=== PATIENT | male | born 1960 | race Caucasian/White ===

== ENCOUNTER → 2023-06-10 12:32 | Outpatient (REF) | payer OTHER, SELFPAY | LOC: RAD 12:32 | PROVIDERS: ATTENDING PHYSICIAN Physician Assistant Medical | DX: M79.604 Pain in right leg (principal); M79.89 Other specified soft tissue disorders; Z86.718 Personal history of other venous thrombosis and embolism | CPT/HCPCS: 93971 ==

== ENCOUNTER → 2023-07-25 09:50 | Outpatient (REF) | payer OTHER, SELFPAY | LOC: RAD 09:50 | PROVIDERS: ATTENDING PHYSICIAN Nurse Practitioner Family; FAMILY PHYSICIAN Family Medicine | DX: M54.50 Low back pain, unspecified (principal) | CPT/HCPCS: 72110 ==

== ENCOUNTER → 2023-08-18 10:03 | Outpatient (REF) | payer OTHER, SELFPAY | LOC: MRI 3T 10:03 | PROVIDERS: ATTENDING PHYSICIAN Nurse Practitioner Family; FAMILY PHYSICIAN Family Medicine | DX: M54.16 Radiculopathy, lumbar region (principal); M51.36 Other intervertebral disc degeneration, lumbar region; R29.898 Other symptoms and signs involving the musculoskeletal system | CPT/HCPCS: 72148 ==

== ENCOUNTER → 2023-09-08 18:04 | Outpatient (REF) | payer OTHER, SELFPAY | LOC: RAD 18:04 | PROVIDERS: ATTENDING PHYSICIAN Family Medicine | DX: M25.551 Pain in right hip (principal) | CPT/HCPCS: 73502 ==

== ENCOUNTER → 2023-09-18 09:41 | Outpatient (REF) | payer OTHER, SELFPAY ==
[2023-09-18 10:46] LABS: % Basophils 1.5 % (0-2); % Eosinophils 2.1 % (0-6); % Immature Granulocytes 0.3 % (0-0.5); % Lymphocytes 24.7 % (20.5-51.1); % Monocytes 9.3 % (1.7-9.3); % Neutrophils 62.1 % (42.2-75.2); Absolute Basophils 0.1 10^3/uL (0-0.2); Absolute Eosinophils 0.1 10^3/uL (0-0.7); Absolute Lymphocytes 1.7 10^3/uL (1.2-3.4); Absolute Monocytes 0.6 10^3/uL (0.1-0.6); Absolute Neutrophils 4.2 10^3/uL (1.4-6.5); Hematocrit 47.2 % (39.0-52.0); Hemoglobin 16.1 g/dL (13.0-18.0); Mean Corp Hgb Conc. 34.1 g/dL (33.0-37.0); Mean Corpuscular Hgb 32.3 pg (27.0-31.0); Mean Corpuscular Volume 94.6 fL (80.0-94.0); Mean Platelet Volume 8.8 fL (7.4-10.4); Nucleated Red Blood Cells % 0 % (-); Platelet Count 244 10^3/uL (130-400); Red Blood Cell Count 4.99 10^6/uL (4.70-6.10); Red Cell Dist. Width 13.1 % (11.5-14.5); White Blood Cell Count 6.8 10^3/uL (4.8-10.8)
[2023-09-18 12:09] LABS: Blood Urea Nitrogen 20 mg/dl (9-20); Carbon Dioxide 29 mmol/L (22-30); Chloride 101 mmol/L (98-107); Glucose 124 mg/dl (70-99); Potassium 4.7 mmol/L (3.5-5.1); Sodium 139 mmol/L (135-145); eGFR > 60.00
== END ==
LOC: REG 09:41
PROVIDERS: ATTENDING PHYSICIAN Orthopaedic Surgery; FAMILY PHYSICIAN Family Medicine
DX: Z01.818 Encounter for other preprocedural examination (principal)
CPT/HCPCS: 36415; 80048; 85025; 93005

== ENCOUNTER 2023-10-08 06:06 | Day surgery (SDC) | payer OTHER, SELFPAY ==
--- NOTE | 2023-10-03 15:29 | PTCARENOTE ---
Abnormal EKG reviewed by Dr. Parks, no further action requested.
--- NOTE | 2023-10-03 15:48 | VNURNOTE ---
Received notification of SDS scheduled R JOSE MANUEL for 10/07. Confirmed with Cele at [facility]o patient will be same day DC, joint protocol. Call placed to patient to explain [facility] services, no answer- left message requesting call back. Also attempted to
call spouse, no answer, left message. Lila at [facility] Intake and [facility] PT harbor department manager Fidel notified of pending SDS. Referral placed in [facility].
--- NOTE | 2023-10-06 10:47 | VNURNOTE ---
Reached out to patient, spoke on phone, explained [facility] services and same day joint protocol. Instructed to bring rolling walker with him day of surgery. Patient confirms he has a dog and cat at home. [facility] pet policy reviewed, infection
prevention/hand hygiene reviewed. Mr. Nichols also confirms he has hip kit, antiemoblism pumps and bedside commode at home. Patient has outpt PT scheduled for Fri. 10/09. Several questions answered about what to expect, approx location of
incision, pillows to use, chair cushion for car. Referral accepted in [facility].
[2023-10-08] VITALS (17 sets, daily range): BP systolic 93–136; BP diastolic 66–84; BMI 38.3
[2023-10-08] MEDS: TYLENOL 650 MG PO (07:16)
[2023-10-08] MEDS: CELEBREX 200 MG PO (07:16)
[2023-10-08] MEDS: NORMOSOL-R 1000 IV (07:16)
[2023-10-08 10:53] LABS: Glycohemoglobin (HgbA1c) 5.7 % (4.0-5.6)
[2023-10-08] MEDS: ANCEF 5 IV (12:08)
== END 2023-10-08 17:58 | disposition home or self-care (01) ==
LOC: SDS 06:06
PROVIDERS: ATTENDING PHYSICIAN Orthopaedic Surgery; FAMILY PHYSICIAN Family Medicine
DX: M16.11 Unilateral primary osteoarthritis, right hip (principal)
CPT/HCPCS: 27130; 73502; 83036; 97163; 97530; C1776

== ENCOUNTER 2024-07-23 13:22 | Inpatient (IN) | payer BC, SELFPAY ==
[2024-07-22 22:23] VITALS: BP 116/78
[2024-07-22 22:54] LABS: % Basophils 0.6 % (0-2); % Eosinophils 0.1 % (0-6); % Immature Granulocytes 0.4 % (0-0.5); % Lymphocytes 5.1 % (20.5-51.1); % Monocytes 3.4 % (1.7-9.3); % Neutrophils 90.4 % (42.2-75.2); Absolute Basophils 0.1 10^3/uL (0-0.2); Absolute Lymphocytes 0.5 10^3/uL (1.2-3.4); Absolute Monocytes 0.4 10^3/uL (0.1-0.6); Absolute Neutrophils 9.3 10^3/uL (1.4-6.5); Hematocrit 48.8 % (39.0-52.0); Mean Corp Hgb Conc. 34.8 g/dL (33.0-37.0); Mean Corpuscular Volume 94.8 fL (80.0-94.0); Mean Platelet Volume 8.8 fL (7.4-10.4); Nucleated Red Blood Cells % 0 % (-); Platelet Count 255 10^3/uL (130-400); Red Blood Cell Count 5.15 10^6/uL (4.70-6.10); Red Cell Dist. Width 12.8 % (11.5-14.5); White Blood Cell Count 10.3 10^3/uL (4.8-10.8)
[2024-07-22 23:03] LABS: Lactic Acid 3.3 mmol/L (0.7-2.0)
[2024-07-22 23:07] LABS: COVID-19 Antigen Negative (Negative)
[2024-07-22 23:11] LABS: ALT (SGPT) 28 U/L (0-50); AST (SGOT) 27 U/L (17-59); Albumin 4.5 g/dl (3.5-5.0); Alkaline Phosphatase 45 U/L (38-126); Blood Urea Nitrogen 18 mg/dl (9-20); Calcium 9.9 mg/dl (8.4-10.2); Carbon Dioxide 28 mmol/L (22-30); Chloride 104 mmol/L (98-107); Glucose 164 mg/dl (70-99); Potassium 3.8 mmol/L (3.5-5.1); Sodium 142 mmol/L (135-145); Total Bilirubin 0.8 mg/dl (0.2-1.3); Total Protein 7.1 g/dl (6.3-8.2); eGFR 56.83
[2024-07-23] VITALS (17 sets, daily range): BP systolic 87–132; BP diastolic 51–84; BMI 37.3; BMI 37.2
[2024-07-23] MEDS: NSS 1000 IV ×3 (03:15→23:53)
[2024-07-23] MEDS: TYLENOL 650 MG PO ×2 (03:28→19:38)
--- NOTE | 2024-07-23 05:01 | ED.GENMED ---
History of Present Illness
<Chevy Grant Jr., PA-C - Last Filed: 07/24/24 15:44>
General
Chief Complaint: Weakness
Source: patient
Exam Limitations: none
Time Seen by Provider: 07/23/24 02:35
Nursing documentation reviewed up to this point in time: agreed with
History of Present Illness
History of Present Illness:
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 Denies any specific symptoms but has felt off balance
fever upon arrival. Denies any specific upper respiratory symptoms abdominal pain changes in urination or bowel movements, headache neck pain.
Past History
<Chevy Grant Jr., PA-C - Last Filed: 07/24/24 15:44>
Past History
ED Past Medical History: HTN and Other (Kidney stones)
ED Past Surgical History: Appendectomy and Urological (Lithotripsy)
Social History
Tobacco: Non-smoker
Alcohol: None
Personal:
Living: with family
Employment: Employed
Family History
Family History: Hypertension
Review of Systems
<Chevy Grant Jr., PA-C - Last Filed: 07/24/24 15:44>
Review of Systems
Allergies reviewed?: Yes
All Other Systems: ROS reviewed and negative except as documented in HPI and ROS
Phy Exam
<ARLEEN Miranda Jr. Last Filed: 07/24/24 15:44>
Physical Exam
Physical Exam:
GENERAL: Alert , in no apparent distress
EYE: pupils equal and reactive
NECK: Supple, no significant adenopathy.
ENT: o/p clr, mmm.
CARDIAC: Regular rate and rhythm .
LUNGS: Clear breath sounds bilaterally, no acute respiratory distress, no wheezes/rales/rhonchi
ABDOMEN: Soft, without focal tenderness, no r/g, no cvat
NEUROLOGICAL: Alert and oriented, no focal neuro deficits
SKIN: Warm and dry, skin intact.
MUSCULOSKELETAL: No edema, well perfused.
PSYCH: Normal and appropriate interaction.
Sepsis
<Chevy Grant Jr., PA-C - Last Filed: 07/24/24 15:44>
Sepsis Screen
Sepsis Screen: Sepsis Ruled Out
Date: 07/24/24
Time: 15:43
<Memo Vega PA-C - Last Filed: 07/23/24 08:12>
Sepsis Screening
Sepsis Assessment: Sepsis Ruled Out
Sepsis Screen
Sepsis Screen: Sepsis Ruled Out
Date: 07/23/24
Time: 08:12
<Romie Hernandez MD - Last Filed: 07/23/24 10:15>
Sepsis Screen
Sepsis Screen: Sepsis Ruled Out
Date: 07/23/24
Time: 10:14
Course
<Chevy Grant Jr., PA-C - Last Filed: 07/24/24 15:44>
Orders/Labs/Results
Orders:
Orders
07/22/24 22:44
COVID-19 Antigen Urgent
Source: Nasal Swab
Complete Blood Count/With Diff Urgent
Comprehensive Metabolic Panel Urgent
Lactic Acid Urgent
Influenza A+B Rapid Molecular Urgent
SARAH Source: Nasal Swab
Specimen Description:
07/23/24 03:23
Acetaminophen [Tylenol] 650 mg .ROUTE .STK-MED ONE
07/23/24 03:27
Acetaminophen [Tylenol] 650 mg PO NOW STA
07/23/24 03:46
Chest [CR Chest - 2 Views ] Urgent
Comment:
Reason For Exam: fever hypotension
07/23/24 04:25
0.9% Sodium Chloride 1000 ml [Nss] 1,000 ml IV BOLUS
07/23/24 04:36
Lactic Acid Urgent
07/23/24 Breakfast
Regular
At Your Request: Full Participation
07/23/24 06:28
CT Head W/o Iv Contrast Urgent
Comment:
Reason For Exam: falls on xarelto
Piperacillin/Tazo 4.5 Gram [Zosyn] 4.5 gram in 100 ml IV NOW
07/23/24 07:45
Urinalysis Reflex To Culture Urgent
Date Specimen was Collected: 07/23/24
Time Specimen was Collected: 07:32
Urine Microscopic Reflex Cult Urgent
07/23/24 08:32
Blood Culture Q30M
SARAH Source: Blood/Venous
Specimen Description:
Blood Culture Q30M
SARAH Source: Blood/Venous
Specimen Description:
07/23/24 08:56
INFECTIOUS DISEASE CONSULT Routine
Consulting Provider: Luis A Pabon
Was physician already notified: Yes
Reason for consult: sepsis
07/23/24 12:30
Norovirus by PCR Urgent
SARAH Source: Feces/Stool
Specimen Description:
Date Specimen was Collected: 07/23/24
Time Specimen was Collected: 18:58
STOOL [C difficile Antigen & Toxins] Urgent
SARAH Source: Feces/Stool
Specimen Description:
Date Specimen was Collected: 07/23/24
Time Specimen was Collected: 18:58
07/23/24 12:43
Admit/Transfer Patient As Directed
Co-Sign Provider:
Level of Care: Inpatient admission
Assign to:: Telemetry
Physician / Group: [facility]
Diagnosis: SIRS
Reason for Telemetry: Arrhythmia
Date to Stop Telemetry: 07/26/24
Time to Stop Telemetry: 11:00
Reason for Hospitalization: IVFs, IV abx
Expected length of stay greater than two midnights?: Yes
ELOS- Estimated Length of Stay in days: 3
I certify the patient meets the requirements for IP care: Yes
PRN Pain Medication Management As Directed
May give lesser potent ordered pain med per pt: Yes
preference::
Protocol:: Medication orders for pain may be administered in a
manner that supports deferring to patient preference
when the pt is:
- Requesting an ordered lesser potent pain medication.
Least to most potent pain medications are defined
as: acetaminophen < NSAID < tramadol < opioids
(morphine, oxycodone, hydromorphone).
- Requesting a lesser dose of the same medication IF
ORDERED.
- Requesting a less intrusive route of administration
if both routes are prescribed by the provider (PO <
IV).
07/23/24 12:44
Code Status As Directed
Resuscitation Status: Full Code
07/23/24 14:17
0.9% Sodium Chloride 1000 ml [Nss] 1,000 ml IV 125 mls/hr
0.9% Sodium Chloride [Nss (Preservative Free)] See Protocol IV PRN PRN
Acetaminophen [Tylenol] 650 mg PO Q4HPRN PRN
FOLic ACID [Folvite] 1 mg 0.9% Sodium Chloride 50 ml [Nss] 50 ml IV DAILYPRN
Lorazepam [Ativan] 1 mg IV Q1HPRN PRN
Lorazepam [Ativan] 1 mg PO Q2HPRN PRN
Lorazepam [Ativan] 2 mg IV Q1HPRN PRN
Rivaroxaban [Xarelto] 20 mg PO DAILY
07/23/24 14:17
Activity As Directed
Activity Level: Out of Bed-Early Mobility
With Assistance
I&O [Intake/ Output] As Directed
Frequency: q12h
MSAS SCORE As Directed
MSAS Score 0-4: Repeat MSAS every 2 hours until 0-4 for three consecutive assessments, then every 4 hours x 48
hours.
MSAS Score 5-7: For MILD withdrawl symptoms. Repeat MSAS and RASS every 2 hours
MSAS Score 8-11: For MODERATE withdrawal symptoms. Repeat MSAS and RASS every 1 hour. Consider ICU or IMU
level of care.
MSAS Score > 11: For SEVERE withdrawal symptoms. Repeat MSAS and RASS every 1 hour. Notify provider, consider
ICU level of care.
MSAS Additional Instructions: If no improvement or no decrease in score from severe to moderate within 12
hours, consult psychiatry
MSAS Notify Provider: Notify provider if patient requires more than 10 mg of Lorazepam in eight hour period.
Vital Signs As Directed
Frequency: Per unit guidelines
Weight As Directed
Frequency: Daily
Ot Eval And Treat Routine
Pt Eval And Treat Routine
Activity Level: Out of Bed-Early Mobility
07/23/24 15:00
Allopurinol [Zyloprim] 300 mg PO DAILY
07/23/24 15:04
BMP [Basic Metabolic Panel] Urgent
CBC/No Diff [Complete Blood Count/No Diff] Urgent
07/23/24 15:35
MRSA Screen Routine
SARAH Source: Nose
Specimen Description:
07/23/24 18:00
Cefepime HCl [Maxipime] 1,000 mg IV Q6H
07/23/24 19:02
Stool Culture Routine
SARAH Source: Feces/Stool
Specimen Description:
Date Specimen was Collected: 07/23/24
Time Specimen was Collected: 18:58
07/23/24 20:00
Thiamine Injection 200 mg IV Q12
07/24/24 06:57
PTT IN AM
Prothrombin Time IN AM
07/24/24 06:58
Basic Metabolic Panel IN AM
Complete Blood Count/No Diff IN AM
Magnesium IN AM
Phosphorus IN AM
07/24/24 08:00
FOLic ACID [Folvite] 1 mg PO DAILY
07/26/24 11:00
DC Protocol for Telemetry ONCE
07/26/24 20:00
Thiamine HCl [Vitamin B1] 100 mg PO BID
Abnormal Lab Results
07/22/24 07/23/24
22:44 07:45
MCV 94.8 H fL
(80.0-94.0)
MCH 33.0 H pg
(27.0-31.0)
Absolute Neuts (auto) 9.3 H 10^3/uL
(1.4-6.5)
Absolute Lymphs (auto) 0.5 L 10^3/uL
(1.2-3.4)
Neutrophils % 90.4 H %
(42.2-75.2)
Lymphocytes % 5.1 L %
(20.5-51.1)
Creatinine 1.4 H mg/dL
(0.7-1.3)
Glucose 164 H mg/dl
(70-99)
Lactic Acid 3.3 H mmol/L
(0.7-2.0)
Urine Bacteria (Reflex) Few A
(Negative)
Urine Albumin (Reflex) 2+ A
(Neg - Trace)
07/22/24 22:44
07/22/24 22:44
Vital Signs
Initial and Last Documented VS:
Initial Vital Signs
Temp Pulse Resp BP Pulse Ox
102.2 F H 103 20 116/78 97
07/22/24 22:23 07/22/24 22:23 07/22/24 22:23 07/22/24 22:23 07/22/24 22:23
Last Documented Vital Signs
Temp Pulse Resp BP Pulse Ox
98.5 F 92 18 115/67 99
07/24/24 15:00 07/24/24 15:00 07/24/24 15:00 07/24/24 15:00 07/24/24 15:00
<Memo Vega PA-C - Last Filed: 07/23/24 08:12>
Orders/Labs/Results
Orders:
Orders
07/22/24 22:44
COVID-19 Antigen Urgent
Source: Nasal Swab
Complete Blood Count/With Diff Urgent
Comprehensive Metabolic Panel Urgent
Lactic Acid Urgent
Influenza A+B Rapid Molecular Urgent
SARAH Source: Nasal Swab
Specimen Description:
07/23/24 03:23
Acetaminophen [Tylenol] 650 mg .ROUTE .STK-MED ONE
07/23/24 03:27
Acetaminophen [Tylenol] 650 mg PO NOW STA
07/23/24 03:46
Chest [CR Chest - 2 Views ] Urgent
Comment:
Reason For Exam: fever hypotension
07/23/24 04:25
0.9% Sodium Chloride 1000 ml [Nss] 1,000 ml IV BOLUS
07/23/24 04:36
Lactic Acid Urgent
07/23/24 Breakfast
Regular
At Your Request: Full Participation
07/23/24 06:28
CT Head W/o Iv Contrast Urgent
Comment:
Reason For Exam: falls on xarelto
Piperacillin/Tazo 4.5 Gram [Zosyn] 4.5 gram in 100 ml IV NOW
07/23/24 07:45
Urinalysis Reflex To Culture Urgent
Date Specimen was Collected: 07/23/24
Time Specimen was Collected: 07:32
Urine Microscopic Reflex Cult Urgent
07/23/24 08:32
Blood Culture Q30M
SARAH Source: Blood/Venous
Specimen Description:
Blood Culture Q30M
SARAH Source: Blood/Venous
Specimen Description:
07/23/24 08:56
INFECTIOUS DISEASE CONSULT Routine
Consulting Provider: Luis A Pabon
Was physician already notified: Yes
Reason for consult: sepsis
07/23/24 12:30
Norovirus by PCR Urgent
SARAH Source: Feces/Stool
Specimen Description:
Date Specimen was Collected: 07/23/24
Time Specimen was Collected: 18:58
STOOL [C difficile Antigen & Toxins] Urgent
SARAH Source: Feces/Stool
Specimen Description:
Date Specimen was Collected: 07/23/24
Time Specimen was Collected: 18:58
07/23/24 12:43
Admit/Transfer Patient As Directed
Co-Sign Provider:
Level of Care: Inpatient admission
Assign to:: Telemetry
Physician / Group: [facility]
Diagnosis: SIRS
Reason for Telemetry: Arrhythmia
Date to Stop Telemetry: 07/26/24
Time to Stop Telemetry: 11:00
Reason for Hospitalization: IVFs, IV abx
Expected length of stay greater than two midnights?: Yes
ELOS- Estimated Length of Stay in days: 3
I certify the patient meets the requirements for IP care: Yes
PRN Pain Medication Management As Directed
May give lesser potent ordered pain med per pt: Yes
preference::
Protocol:: Medication orders for pain may be administered in a
manner that supports deferring to patient preference
when the pt is:
- Requesting an ordered lesser potent pain medication.
Least to most potent pain medications are defined
as: acetaminophen < NSAID < tramadol < opioids
(morphine, oxycodone, hydromorphone).
- Requesting a lesser dose of the same medication IF
ORDERED.
- Requesting a less intrusive route of administration
if both routes are prescribed by the provider (PO <
IV).
05/30/25 12:44
Code Status As Directed
Resuscitation Status: Full Code
07/23/24 14:17
0.9% Sodium Chloride 1000 ml [Nss] 1,000 ml IV 125 mls/hr
0.9% Sodium Chloride [Nss (Preservative Free)] See Protocol IV PRN PRN
Acetaminophen [Tylenol] 650 mg PO Q4HPRN PRN
FOLic ACID [Folvite] 1 mg 0.9% Sodium Chloride 50 ml [Nss] 50 ml IV DAILYPRN
Lorazepam [Ativan] 1 mg IV Q1HPRN PRN
Lorazepam [Ativan] 1 mg PO Q2HPRN PRN
Lorazepam [Ativan] 2 mg IV Q1HPRN PRN
Rivaroxaban [Xarelto] 20 mg PO DAILY
07/23/24 14:17
Activity As Directed
Activity Level: Out of Bed-Early Mobility
With Assistance
I&O [Intake/ Output] As Directed
Frequency: q12h
MSAS SCORE As Directed
MSAS Score 0-4: Repeat MSAS every 2 hours until 0-4 for three consecutive assessments, then every 4 hours x 48
hours.
MSAS Score 5-7: For MILD withdrawl symptoms. Repeat MSAS and RASS every 2 hours
MSAS Score 8-11: For MODERATE withdrawal symptoms. Repeat MSAS and RASS every 1 hour. Consider ICU or IMU
level of care.
MSAS Score > 11: For SEVERE withdrawal symptoms. Repeat MSAS and RASS every 1 hour. Notify provider, consider
ICU level of care.
MSAS Additional Instructions: If no improvement or no decrease in score from severe to moderate within 12
hours, consult psychiatry
MSAS Notify Provider: Notify provider if patient requires more than 10 mg of Lorazepam in eight hour period.
Vital Signs As Directed
Frequency: Per unit guidelines
Weight As Directed
Frequency: Daily
Ot Eval And Treat Routine
Pt Eval And Treat Routine
Activity Level: Out of Bed-Early Mobility
07/23/24 15:00
Allopurinol [Zyloprim] 300 mg PO DAILY
07/23/24 15:04
BMP [Basic Metabolic Panel] Urgent
CBC/No Diff [Complete Blood Count/No Diff] Urgent
07/23/24 15:35
MRSA Screen Routine
SARAH Source: Nose
Specimen Description:
07/23/24 18:00
Cefepime HCl [Maxipime] 1,000 mg IV Q6H
07/23/24 19:02
Stool Culture Routine
SARAH Source: Feces/Stool
Specimen Description:
Date Specimen was Collected: 07/23/24
Time Specimen was Collected: 18:58
07/23/24 20:00
Thiamine Injection 200 mg IV Q12
07/24/24 06:57
PTT IN AM
Prothrombin Time IN AM
07/24/24 06:58
Basic Metabolic Panel IN AM
Complete Blood Count/No Diff IN AM
Magnesium IN AM
Phosphorus IN AM
07/24/24 08:00
FOLic ACID [Folvite] 1 mg PO DAILY
07/26/24 11:00
DC Protocol for Telemetry ONCE
07/26/24 20:00
Thiamine HCl [Vitamin B1] 100 mg PO BID
Abnormal Lab Results
07/22/24 07/23/24
22:44 07:45
MCV 94.8 H fL
(80.0-94.0)
MCH 33.0 H pg
(27.0-31.0)
Absolute Neuts (auto) 9.3 H 10^3/uL
(1.4-6.5)
Absolute Lymphs (auto) 0.5 L 10^3/uL
(1.2-3.4)
Neutrophils % 90.4 H %
(42.2-75.2)
Lymphocytes % 5.1 L %
(20.5-51.1)
Creatinine 1.4 H mg/dL
(0.7-1.3)
Glucose 164 H mg/dl
(70-99)
Lactic Acid 3.3 H mmol/L
(0.7-2.0)
Urine Bacteria (Reflex) Few A
(Negative)
Urine Albumin (Reflex) 2+ A
(Neg - Trace)
07/22/24 22:44
07/22/24 22:44
Vital Signs
Initial and Last Documented VS:
Initial Vital Signs
Temp Pulse Resp BP Pulse Ox
102.2 F H 103 20 116/78 97
07/22/24 22:23 07/22/24 22:23 07/22/24 22:23 07/22/24 22:23 07/22/24 22:23
Last Documented Vital Signs
Temp Pulse Resp BP Pulse Ox
98.5 F 92 18 115/67 99
07/24/24 15:00 07/24/24 15:00 07/24/24 15:00 07/24/24 15:00 07/24/24 15:00
<Romie Hernandez MD - Last Filed: 07/23/24 10:15>
Orders/Labs/Results
Orders:
Orders
07/22/24 22:44
COVID-19 Antigen Urgent
Source: Nasal Swab
Complete Blood Count/With Diff Urgent
Comprehensive Metabolic Panel Urgent
Lactic Acid Urgent
Influenza A+B Rapid Molecular Urgent
SARAH Source: Nasal Swab
Specimen Description:
07/23/24 03:23
Acetaminophen [Tylenol] 650 mg .ROUTE .STK-MED ONE
07/23/24 03:27
Acetaminophen [Tylenol] 650 mg PO NOW STA
07/23/24 03:46
Chest [CR Chest - 2 Views ] Urgent
Comment:
Reason For Exam: fever hypotension
07/23/24 04:25
0.9% Sodium Chloride 1000 ml [Nss] 1,000 ml IV BOLUS
07/23/24 04:36
Lactic Acid Urgent
07/23/24 Breakfast
Regular
At Your Request: Full Participation
07/23/24 06:28
CT Head W/o Iv Contrast Urgent
Comment:
Reason For Exam: falls on xarelto
Piperacillin/Tazo 4.5 Gram [Zosyn] 4.5 gram in 100 ml IV NOW
07/23/24 07:45
Urinalysis Reflex To Culture Urgent
Date Specimen was Collected: 07/23/24
Time Specimen was Collected: 07:32
Urine Microscopic Reflex Cult Urgent
07/23/24 08:32
Blood Culture Q30M
SARAH Source: Blood/Venous
Specimen Description:
Blood Culture Q30M
SARAH Source: Blood/Venous
Specimen Description:
07/23/24 08:56
INFECTIOUS DISEASE CONSULT Routine
Consulting Provider: Luis A Pabon
Was physician already notified: Yes
Reason for consult: sepsis
07/23/24 12:30
Norovirus by PCR Urgent
SARAH Source: Feces/Stool
Specimen Description:
Date Specimen was Collected: 07/23/24
Time Specimen was Collected: 18:58
STOOL [C difficile Antigen & Toxins] Urgent
SARAH Source: Feces/Stool
Specimen Description:
Date Specimen was Collected: 07/23/24
Time Specimen was Collected: 18:58
07/23/24 12:43
Admit/Transfer Patient As Directed
Co-Sign Provider:
Level of Care: Inpatient admission
Assign to:: Telemetry
Physician / Group: [facility]
Diagnosis: SIRS
Reason for Telemetry: Arrhythmia
Date to Stop Telemetry: 07/26/24
Time to Stop Telemetry: 11:00
Reason for Hospitalization: IVFs, IV abx
Expected length of stay greater than two midnights?: Yes
ELOS- Estimated Length of Stay in days: 3
I certify the patient meets the requirements for IP care: Yes
PRN Pain Medication Management As Directed
May give lesser potent ordered pain med per pt: Yes
preference::
Protocol:: Medication orders for pain may be administered in a
manner that supports deferring to patient preference
when the pt is:
- Requesting an ordered lesser potent pain medication.
Least to most potent pain medications are defined
as: acetaminophen < NSAID < tramadol < opioids
(morphine, oxycodone, hydromorphone).
- Requesting a lesser dose of the same medication IF
ORDERED.
- Requesting a less intrusive route of administration
if both routes are prescribed by the provider (PO <
IV).
07/23/24 12:44
Code Status As Directed
Resuscitation Status: Full Code
07/23/24 14:17
0.9% Sodium Chloride 1000 ml [Nss] 1,000 ml IV 125 mls/hr
0.9% Sodium Chloride [Nss (Preservative Free)] See Protocol IV PRN PRN
Acetaminophen [Tylenol] 650 mg PO Q4HPRN PRN
FOLic ACID [Folvite] 1 mg 0.9% Sodium Chloride 50 ml [Nss] 50 ml IV DAILYPRN
Lorazepam [Ativan] 1 mg IV Q1HPRN PRN
Lorazepam [Ativan] 1 mg PO Q2HPRN PRN
Lorazepam [Ativan] 2 mg IV Q1HPRN PRN
Rivaroxaban [Xarelto] 20 mg PO DAILY
07/23/24 14:17
Activity As Directed
Activity Level: Out of Bed-Early Mobility
With Assistance
I&O [Intake/ Output] As Directed
Frequency: q12h
MSAS SCORE As Directed
MSAS Score 0-4: Repeat MSAS every 2 hours until 0-4 for three consecutive assessments, then every 4 hours x 48
hours.
MSAS Score 5-7: For MILD withdrawl symptoms. Repeat MSAS and RASS every 2 hours
MSAS Score 8-11: For MODERATE withdrawal symptoms. Repeat MSAS and RASS every 1 hour. Consider ICU or IMU
level of care.
MSAS Score > 11: For SEVERE withdrawal symptoms. Repeat MSAS and RASS every 1 hour. Notify provider, consider
ICU level of care.
MSAS Additional Instructions: If no improvement or no decrease in score from severe to moderate within 12
hours, consult psychiatry
MSAS Notify Provider: Notify provider if patient requires more than 10 mg of Lorazepam in eight hour period.
Vital Signs As Directed
Frequency: Per unit guidelines
Weight As Directed
Frequency: Daily
Ot Eval And Treat Routine
Pt Eval And Treat Routine
Activity Level: Out of Bed-Early Mobility
07/23/24 15:00
Allopurinol [Zyloprim] 300 mg PO DAILY
07/23/24 15:04
BMP [Basic Metabolic Panel] Urgent
CBC/No Diff [Complete Blood Count/No Diff] Urgent
07/23/24 15:35
MRSA Screen Routine
SARAH Source: Nose
Specimen Description:
07/23/24 18:00
Cefepime HCl [Maxipime] 1,000 mg IV Q6H
07/23/24 19:02
Stool Culture Routine
SARAH Source: Feces/Stool
Specimen Description:
Date Specimen was Collected: 07/23/24
Time Specimen was Collected: 18:58
07/23/24 20:00
Thiamine Injection 200 mg IV Q12
07/24/24 06:57
PTT IN AM
Prothrombin Time IN AM
07/24/24 06:58
Basic Metabolic Panel IN AM
Complete Blood Count/No Diff IN AM
Magnesium IN AM
Phosphorus IN AM
07/24/24 08:00
FOLic ACID [Folvite] 1 mg PO DAILY
07/26/24 11:00
DC Protocol for Telemetry ONCE
07/26/24 20:00
Thiamine HCl [Vitamin B1] 100 mg PO BID
Abnormal Lab Results
07/22/24 07/23/24
22:44 07:45
MCV 94.8 H fL
(80.0-94.0)
MCH 33.0 H pg
(27.0-31.0)
Absolute Neuts (auto) 9.3 H 10^3/uL
(1.4-6.5)
Absolute Lymphs (auto) 0.5 L 10^3/uL
(1.2-3.4)
Neutrophils % 90.4 H %
(42.2-75.2)
Lymphocytes % 5.1 L %
(20.5-51.1)
Creatinine 1.4 H mg/dL
(0.7-1.3)
Glucose 164 H mg/dl
(70-99)
Lactic Acid 3.3 H mmol/L
(0.7-2.0)
Urine Bacteria (Reflex) Few A
(Negative)
Urine Albumin (Reflex) 2+ A
(Neg - Trace)
07/22/24 22:44
07/22/24 22:44
Vital Signs
Initial and Last Documented VS:
Initial Vital Signs
Temp Pulse Resp BP Pulse Ox
102.2 F H 103 20 116/78 97
07/22/24 22:23 07/22/24 22:23 07/22/24 22:23 07/22/24 22:23 07/22/24 22:23
Last Documented Vital Signs
Temp Pulse Resp BP Pulse Ox
98.5 F 92 18 115/67 99
07/24/24 15:00 07/24/24 15:00 07/24/24 15:00 07/24/24 15:00 07/24/24 15:00
<Chevy Grant Jr., PA-C - Last Filed: 07/24/24 15:44>
MDM/Problems Addressed
MDM/Problems Addressed:
63-year-old male presenting to the emergency department today with concerns of feeling off balance weak multiple falls today he is on Xarelto denies any his head. Denies specific symptoms at this point otherwise. Had an elevated lactic acid of 3.3
was mildly tachycardic on arrival and febrile to 102.2. No white count.
<Memo Vega PA-C - Last Filed: 07/23/24 08:12>
*Critical Care Note
Total Time (30-74mins, 75-104mins- exclusive of procedures): Not Applicable
<Memo Vega PA-C - Last Filed: 07/23/24 08:12>
Update Note
Update Note:
Received signout of patient pending urinalysis. Patient here for weakness and falls in the setting of fever. Workup so far negative urinalysis without infection. His blood pressure was soft initially received 2 L of fluid which has improved.
Concern for possible sepsis no clear source at this time. Will admit. Zosyn given
ED Attending Note
<Chevy Grant Jr., PA-C - Last Filed: 07/24/24 15:44>
-
Portions of this chart may have been created with voice recognition software.� Occasional wrong word or��sound alike� substitutions may have occurred due to the inherent limitations of voice recognition software.
<Romie Hernandez MD - Last Filed: 07/23/24 10:15>
ED Attending Note
Patient seen and examined by attending physician: Yes
I performed the substantive portion of visit, reviewed & personally made and approve the management plan that is documented in note by myself or YOHANA.: Yes
ED Attending Note:
Patient presents with weakness bilaterally since late p.m. yesterday. Troubles ambulating. No other focal infections. Anticoagulated for DVT. History of hypertension. No acute infectious issues described denying cough abdominal pain urinary
symptoms.
On exam patient is nontoxic in no distress. Warm and dry. Perfusing well. No respiratory distress. Abdomen nontender. He is nonfocal. Speech is normal. Neck is supple. No rash.
Patient states he did ambulate to the bathroom and is improved somewhat. Very nontoxic. Clinically not meningitic. Fever weakness of unknown source. Admission for further care
Discharge Plan
Departure
Patient Disposition: Admit
Date of Disposition: 07/23/24
Time of Disposition: 08:11
Presentation/result/management discussed w/ accepting MD/DO: Hospitalist
Discharge Problem:
Weakness, Fever
Interventions
Interventions:
*Risk Screen - Suicide Last Done: 07/22/24 22:23
*General Assessment Last Done: 07/22/24 22:23
*Neglect/Abuse Screening Last Done: 07/22/24 22:23
*ED- Fall Risk Assessment Last Done: 07/23/24 02:22
*ED COVID-19 Vaccine History Last Done: 07/23/24 02:21
*Nursing Disposition Last Done: 07/23/24 14:38
ED- Cardiac Assessment Last Done: 07/23/24 02:35
ED-Musculoskeletal Assessment Last Done: 07/23/24 02:35
ED- Neurological Assessment Last Done: 07/23/24 02:35
ED- Pulmonary Assessment Last Done: 07/23/24 02:35
ED-Skin Assessment Last Done: 07/23/24 02:35
Discharge Date and Time
Discharge Date/Time: 07/23/24 14:15
[2024-07-23 05:02] LABS: Lactic Acid 1.3 mmol/L (0.7-2.0)
[2024-07-23 08:01] LABS: Urine Albumin 2+ (Neg - Trace); Urine Bilirubin Negative (Negative); Urine Character Clear (Clear); Urine Color Yellow; Urine Glucose Negative (Negative); Urine Ketone Negative (Negative); Urine Leukocyte Negative (Negative); Urine Nitrite Negative (Negative); Urine Occult Blood Negative (Negative); Urine Urobilinogen Negative (Neg - 1+)
[2024-07-23 08:26] LABS: Urine Mucus Moderate
[2024-07-23 08:28] LABS: Urine Squamous Cell 0-2 /LPF (Few)
[2024-07-23 08:29] LABS: Urine Bacteria Few (Negative); Urine Red Blood Cell 0-2 /HPF (0-2)
[2024-07-23] MEDS: ZOSYN 100 IV (08:37)
--- NOTE | 2024-07-23 10:50 | CON.ID ---
Consultation
-
Date/Time Consultation Requested: July 23, 2024 0856
Date/Time Consultation Performed: July 23, 2024 1051
Requesting Provider: Dr. Paul Petersen
Performing Provider: Dr. Rajani Laboy
Reason for Consultation: Fever
Chief Complaint / Past History
Chief Complaint
Weakness
History of Present Illness
64-year-old male with history of hypertension, diverticulitis, right total hip replacement who was brought to the hospital July 22 due to falling twice in the bathroom. Patient reports yesterday around 4 he developed sudden onset of chills. He then
felt unwell. Some nausea. No vomiting. Was having frequent loose bowel movements. He felt weak. Last night he went to the bathroom. However his legs were very weak and he had trouble getting up from the toilet. When he got up he fell. He his
called EMS. In the ED temperature 102.2. Blood pressure was low 87 systolic responded to IV fluids. White count normal. Chest x-ray negative. Urinalysis negative. COVID and influenza negative. Blood cultures pending. He is currently on
Zosyn. Patient denies hip pain. No back pain. No headache. No URI. No cough. No abdominal pain. He now has diarrhea after the Zosyn. No urine symptoms. No ill contacts. No recent travel. No tick exposure. He does not spend much time
outdoors. No recent dental work. At hamburger from restaurant 2 days ago. He feels better today. He was able to ambulate to the bathroom without problems.
Past History
Additional Past Medical History:
HTN
Diverticulitis
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
Hx DVT/PE
BMI=37
Additional Past Surgical History:
R JOSE MANUEL
Appendectomy
Lithotripsy
Allergy History:
shellfish derived Allergy (Verified 07/22/24 22:30)
Nausea / Vomiting
Medications Reviewed: Yes
Current Antibiotics:
Zosyn
Social History
Tobacco: Non-Smoker
Alcohol: Occasional
Drug: None
Personal:
Living: With Family (1 cat and dog)
Employment: Employed (Real estate (desk job))
Family History
Family History: Not Pertinent
Review of Systems
Review of Systems
General: Chills and Change in Appetite
HEENT: Negative Stiff Neck, Sinus Problems, Headache or Pharyngitis
Cardiovascular: Negative Chest Pain or Dyspnea
Respiratory: Negative Dyspnea or Cough
Gasteroenterology: Nausea and Diarrhea; Negative Weight Loss or Vomiting
Genital / Urological: Negative Dysuria or Flank Pain
Endocrine: Weakness
Neurological: Negative Dizziness
All systems: All other systems were reviewed and were negative
Vital Signs
Temp Pulse Resp BP Pulse Ox
101.8 F H 71 13 115/84 97
07/23/24 02:20 07/23/24 06:00 07/23/24 06:00 07/23/24 06:00 07/23/24 06:23
Selected Entries
07/22/24
22:23 07/23/24
02:20
Temp 102.2 F H 101.8 F H
Physical Exam
Physical Exam
Constitutional: No Acute Distress, Comfortable and Obese
Head: Other (No frontal or max or sinus tenderness)
Eyes: No Conjunctival Hemorrhage and Sclera Anicteric
Pharynx: Benign
Cardiovascular: Regular Rate and S1/S2
Pulmonary: Clear
Gastrointestinal: Soft, Non Tender, Non Distended and Normal Bowel Sounds
Genito-Urinary: Negative Suprapubic Tenderness or CVA Tenderness
Extremities: Negative Edema or Erythema
Musculoskeletal: Other (right hip without erythema/induration); Negative Spinal Tenderness
Skin: Negative Rash
Wound: None
Neurological: AO x 3
Lab / Diagnostic Study Results
07/22/24 22:44
07/22/24 22:44
Abs Immat Gran (auto) 0.0 10^3/uL (0-0.05) 07/22/24 22:44
Absolute Neuts (auto) 9.3 10^3/uL (1.4-6.5) H 07/22/24 22:44
Absolute Lymphs (auto) 0.5 10^3/uL (1.2-3.4) L 07/22/24 22:44
Absolute Monos (auto) 0.4 10^3/uL (0.1-0.6) 07/22/24 22:44
Absolute Basos (auto) 0.1 10^3/uL (0-0.2) 07/22/24 22:44
Immature Gran % 0.4 % (0-0.5) 07/22/24 22:44
Neutrophils % 90.4 % (42.2-75.2) H 07/22/24 22:44
Lymphocytes % 5.1 % (20.5-51.1) L 07/22/24 22:44
Monocytes % 3.4 % (1.7-9.3) 07/22/24 22:44
Eosinophils % 0.1 % (0-6) 07/22/24 22:44
Basophils % 0.6 % (0-2) 07/22/24 22:44
Lactic Acid 1.3 mmol/L (0.7-2.0) 07/23/24 04:36
Ur Squamous Epith Cells 0-2 /LPF (Few) 07/23/24 07:45
Microbiology Results
Micro:
07/23/24 08:32 Blood Culture - Pending
Blood/Venous
07/23/24 08:32 Blood Culture - Pending
Blood/Venous
07/22/24 22:44 Influenza Types A & B (SHARITA) - Final
Nasal Swab Negative for Influenza A & B, NAAT
Negative results must be combined with clinical observations
and patient history.
Nucleic Acid Amplification test (NAAT)performed on the
[employer] platform.
07/23/[address]: No CT evidence for acute intracranial hemorrhage or transcortical infarct.7 mm chronic periventricular white matter infarct in the posterior left frontal lobe centrum semiovale.Moderate bilateral frontal lobe volume loss.
07/23/34 CXR: No radiographic evidence of acute cardiopulmonary abnormality.
Assessment / Plan
# Febrile illness
# weakness
# Frequent loose stools
# LEONIE
- COVID/influenza neg
- UA neg. CXR neg
- Await blood cultures.
-Check stool culture and C. diff
- Narrow Zosyn to cefepime.
- Trend fever curve
# Conditions PHARMACY SALESPERSON
HTN
Diverticulitis
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
Hx DVT/PE
BMI=37
--- NOTE | 2024-07-23 12:16 | HPS.HSE ---
Family Physician
-
Family Physician: David Egan
Chief Complaint
-
Weakness and Fever
History of Present Illness
Patient is a 63 y/o male past medical history of hypertension and DVT/PE on anticoagulation who presents with weakness and fever. Patient reports he was feeling well yesterday morning. He took several walks earlier in the day but in the evening
time he noticed he was off balance which resulted in a two falls. Upon arrival to the emergency department he was found to have a fever of 102.2F which was associated with chills. He reports multiple soft/loose stools yesterday which he now
reports is more liquid/diarrhea like today. He denies nausea, vomiting or abdominal pain. He denies cough or shortness of breath. He denies chest pain or palpitations. He denies headache, blurry vision, neck pain or stiffness. He denies dysuria
or urinary frequency. He denies any rashes.
Medical History
Past Medical History
Past Medical History: Reports Other
Additional Past Medical History:
DVT/PE
Essential Hypertension
Diverticulitis
Past Surgical History: Reports Other
Additional Past Surgical History:
Right Total Hip Replacement
Appendectomy
Lithotripsy
Social History
Tobacco: Non-smoker
Alcohol: Daily (2 glasses of whiskey nightly)
Family History
Family History: Not pertinent
Allergies / Home Medications
Allergies reflects when Allergies were last updated in [employer].
Home Medications with original date entered in [employer]
Allergy/Medication List:
Allergies
Allergy/AdvReac Type Severity Reaction Status Date / Time
shellfish derived Allergy Nausea / Verified 07/22/24 22:30
Vomiting
Home Medications
allopurinol 300 mg tablet 300 mg PO DAILY kidney stone 11/09/20
propranolol 80 mg capsule,24 hr,extended release 80 mg PO DAILY Blood pressure 11/09/20
rivaroxaban 20 mg tablet (Xarelto) 20 mg PO DAILY 10/02/23
lisinopril 20 mg-hydrochlorothiazide 12.5 mg tablet 1 tab PO DAILY 07/23/24
psyllium 1 packet PO DAILY 07/23/24
Review of Systems
-
History Source: Patient
A 12 point ROS was completed and negative except as noted: Yes
Constitutional: Denies Fever or Chills
Respiratory: Denies Cough or Trouble Breathing
Cardiac: Denies Chest Pain or Palpitations
Abdomen/GI: Reports Diarrhea; Denies Abdominal Pain, Nausea, Vomiting or Constipated
Physical Exam
Vital Signs
Vital Signs
Temp Pulse Resp BP Pulse Ox
101.8 F H 71 13 115/84 97
07/23/24 02:20 07/23/24 06:00 07/23/24 06:00 07/23/24 06:00 07/23/24 06:23
Physical Exam
General: Comfortable and Conversant
HEENT: Anicteric and Moist mucous membranes
Respiratory: Non Labored Respirations and Decreased Breath Sounds
Cardiac: S1/S2 and Regular Rhythm; No Tachycardia or Murmur
GI: Soft, Non Tender and Other (Protuberant)
Rectal: Deferred by Provider
Musculoskeletal: No Clubbing, No Cyanosis and No Edema
Skin: Warm and Dry
Neuro: Awake, Alert and No Motor Deficits
Psych: Calm
Laboratory Results
-
07/22/24 22:44
07/22/24 22:44
Laboratory Results
Lactic Acid 1.3 mmol/L (0.7-2.0) 07/23/24 04:36
Total Bilirubin 0.8 mg/dl (0.2-1.3) 07/22/24 22:44
AST 27 U/L (17-59) 07/22/24 22:44
ALT 28 U/L (0-50) 07/22/24 22:44
Alkaline Phosphatase 45 U/L (38-126) 07/22/24 22:44
Data Reviewed
-
Lab Data: Labs Reviewed by me
Impression/Plan
-
Systemic Inflammatory Response Syndrome suspect Sepsis but source of infection remains unclear
-Patient is now reporting diarrhea which is a potential source
-Consult Infectious Disease
-Continue Zosyn - Add Vancomycin pending MRSA screen
-Check stool studies
-Await blood cultures
Acute Renal Insufficiency
-Hold lisinopril
-Continue IVFs
-Recheck labs in AM
Essential Hypertension
-BP initially running low but improved with IVFs
-Hold anti-hypertensives for now
-Monitor blood pressure
Alcohol Use Disorder
-Continue alcohol withdrawal protocol
Hx DVT/PE
-Continue Xarelto
Code Status: Full Code
--- NOTE | 2024-07-23 13:08 | W.PN.UPDATE ---
Update Note
Progress Note Update
I saw and examined the patient.
The PROJECT SYSTEMS ENGINEER or PA's note was reviewed and I agree with the note.
Comment: 63 y/o M who p/w CCs weakness and fever.
120/71, 77, 11, 101.8 �F, 95% RA
Gen: NAD, AAOx3.
Eyes: EOMI, PERRLA, no scleral icterus.
Neck: supple.
CV: RRR, +S1/S2, no m/r/g.
Resp: CTAB, no rales, wheezes, or rhonchi.
Abd: +BS, soft, NT, ND
Skin: No rashes. 2-3+ B/L LE edema
Neuro: CN 2-12 intact, non-focal.
Psych: Normal mood and affect.
CT brain:
1. No CT evidence for acute intracranial hemorrhage or transcortical infarct.
2. 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
3. Moderate bilateral frontal lobe volume loss.
CXR: No radiographic evidence of acute cardiopulmonary abnormality.
SIRS:
-currently no definitive source of infection
-no meningeal signs (on my exam as well as the exam of Dr. Hernandez as per our conversation in [employer] today)
-cont empiric Zosyn, add Vanco until MRSA screen results
-s/p IVFs, cont maintenance IVFs
-with diarrhea check stool studies
--- NOTE | 2024-07-23 14:49 | CM ---
Met with patient at bedside; initial assessment completed
Pharmacy verified: [facility] @ [id number], [place]
Patient lives w/ ; multilevel home 4-5 steps to enter; 12-13 steps between floors; railings on stairs; powder room 1st floor; 2nd floor bath has tub w/ shower
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
DME: none
No SNF or Home Health utilization history
Will transport home via [facility] service
Plan: anticipate patient will discharge to home; CM will monitor for discharge needs and support coordination of services as needed
[2024-07-23] MEDS: XARELTO 20 MG PO (15:21)
[2024-07-23] MEDS: ZYLOPRIM 300 MG PO (15:21)
[2024-07-23 15:29] LABS: Hematocrit 43.5 % (39.0-52.0); Hemoglobin 14.9 g/dL (13.0-18.0); Mean Corp Hgb Conc. 34.3 g/dL (33.0-37.0); Mean Corpuscular Hgb 32.7 pg (27.0-31.0); Mean Corpuscular Volume 95.4 fL (80.0-94.0); Mean Platelet Volume 8.9 fL (7.4-10.4); Platelet Count 170 10^3/uL (130-400); Red Blood Cell Count 4.56 10^6/uL (4.70-6.10); Red Cell Dist. Width 13.1 % (11.5-14.5); White Blood Cell Count 7.1 10^3/uL (4.8-10.8)
[2024-07-23 15:31] LABS: Blood Urea Nitrogen 17 mg/dl (9-20); Calcium 8.8 mg/dl (8.4-10.2); Carbon Dioxide 26 mmol/L (22-30); Chloride 106 mmol/L (98-107); Estimated Creatinine Clearance 75 ml/min; Glucose 101 mg/dl (70-99); Sodium 138 mmol/L (135-145); eGFR > 60.00
[2024-07-23] MEDS: MAXIPIME 1000 MG IV ×2 (17:18→23:47)
[2024-07-23] MEDS: STERILE WATER FOR INJECTION 10 ML IV ×2 (17:19→23:47)
[2024-07-23] MEDS: THIAMINE INJECTION 200 MG IV (19:38)
[2024-07-24] VITALS (8 sets, daily range): BP systolic 96–135; BP diastolic 57–88; PULSE 87; O2SAT 94; BMI 37.5
[2024-07-24] MEDS: MAXIPIME 1000 MG IV ×4 (05:12→23:23)
[2024-07-24] MEDS: STERILE WATER FOR INJECTION 10 ML IV ×4 (05:12→23:23)
[2024-07-24] MEDS: TYLENOL 650 MG PO (05:28)
[2024-07-24] MEDS: THIAMINE INJECTION 200 MG IV ×2 (07:41→20:11)
[2024-07-24] MEDS: FOLVITE 1 MG PO (07:41)
[2024-07-24] MEDS: XARELTO 20 MG PO (07:41)
[2024-07-24] MEDS: ZYLOPRIM 300 MG PO (07:41)
[2024-07-24 08:15] LABS: Hematocrit 38.1 % (39.0-52.0); Hemoglobin 13.4 g/dL (13.0-18.0); Mean Corp Hgb Conc. 35.2 g/dL (33.0-37.0); Mean Corpuscular Hgb 33.1 pg (27.0-31.0); Mean Corpuscular Volume 94.1 fL (80.0-94.0); Mean Platelet Volume 9.2 fL (7.4-10.4); Platelet Count 151 10^3/uL (130-400); Red Blood Cell Count 4.05 10^6/uL (4.70-6.10); White Blood Cell Count 6.4 10^3/uL (4.8-10.8)
[2024-07-24 08:20] LABS: INR 1.61; PT 19.4 Sec (11.4-14.6)
[2024-07-24 08:21] LABS: APTT 33.3 Sec (23.4-35.0)
--- NOTE | 2024-07-24 08:50 | W.PN.HOSP.TC ---
Today's Communication/Plan
-
see plan
Assessment / Plan
Assessment / Plan
Gen: NAD, AAOx3.
Eyes: EOMI, PERRLA, no scleral icterus.
Neck: supple.
CV: RRR, +S1/S2, no m/r/g.
Resp: CTAB, no rales, wheezes, or rhonchi.
Abd: +BS, soft, NT, ND
Skin: No rashes. 2-3+ B/L LE edema
Neuro: CN 2-12 intact, non-focal.
Psych: Normal mood and affect.
07/23/24 12:30 Feces/Stool C. difficile GDH Antigen & Toxins - Final
Negative for toxigenic C.difficile
07/23/24 08:32 Blood/Venous Blood Culture - Preliminary
No Growth in 24 hours- Final report to follow
07/23/24 08:32 Blood/Venous Blood Culture - Preliminary
No Growth in 24 hours- Final report to follow
07/22/24 22:44 Nasal Swab Influenza Types A & B (SHARITA) - Final
Negative for Influenza A & B, NAAT
Negative results must be combined with clinical observations
and patient history.
Nucleic Acid Amplification test (NAAT)performed on the
[employer] NOW platform.
CT brain:
1. No CT evidence for acute intracranial hemorrhage or transcortical infarct.
2. 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
3. Moderate bilateral frontal lobe volume loss.
CXR: No radiographic evidence of acute cardiopulmonary abnormality.
SIRS:
-currently no definitive source of infection
-COVID/Flu NEG
-no meningeal signs (on my exam on admission as well as the exam of Dr. Hernandez as per our conversation in [facility] 07/23/24)
-cont empiric Cefepime as per ID
-s/p IVF bolus on admission, cont maintenance IVFs (increase to 125cc/hr with hypotension)
-with diarrhea follow stool studies (so far C diff NEG)
-BCxs NGTD
LEONIE:
-holding ACEi
-cont IVFs
Hypokalemia;
-40meq PO and 40meq IV
-place on tele
Other problems:
Essential HTN: cont to hold home antihypertensives
Alcohol Use Disorder: cont MSAS protocol (thiamine/folate/PRN ativan)
h/o DVT/PE: cont Xarelto
FULL/Xarelto
Anticipated Discharge: > 48 hours
Subjective/Interval History
-
Date of Service: July 24, 2024
Objective Data
-
Labs:
Laboratory Results
07/24/24 07/24/24
06:57 06:58
WBC 6.4
Hgb 13.4
Hct 38.1 L
Plt Count 151
PT 19.4 H
INR 1.61
APTT 33.3
Sodium Pending
Potassium Pending
Chloride Pending
Carbon Dioxide Pending
BUN Pending
Creatinine Pending
Glucose Pending
Calcium Pending
Vital Signs:
Vital Signs
Temp Pulse Resp BP Pulse Ox
98.7 F 89 18 106/60 94
07/24/24 07:00 07/24/24 07:00 07/24/24 07:00 07/24/24 07:00 07/24/24 07:00
I&O
07/23/24 07/24/24 07/25/24
06:59 06:59 06:59
Intake Total 1000 / 1000 1460 / 1460
Output Total 800 / 800 600 / 600
Balance 200 / 200 860 / 860
[2024-07-24 08:59] LABS: Blood Urea Nitrogen 12 mg/dl (9-20); Carbon Dioxide 24 mmol/L (22-30); Chloride 109 mmol/L (98-107); Estimated Creatinine Clearance 81 ml/min; Glucose 86 mg/dl (70-99); Magnesium 2.1 mg/dl (1.6-2.3); Phosphorus 2.2 mg/dl (2.5-4.5); Potassium 2.8 mmol/L (3.5-5.1); Sodium 138 mmol/L (135-145); eGFR > 60.00
[2024-07-24] MEDS: KCL 40 MEQ PO (10:06)
[2024-07-24] MEDS: KCL 270 MEQ IV (10:07)
[2024-07-24] MEDS: NSS 1000 IV ×2 (12:24→20:10)
--- NOTE | 2024-07-24 13:49 | W.PN.ID1 ---
Date of Service
Date of Service: July 24, 2024
Today's Communication
Continue cefepime.
Assessment / Plan
# Fever persists
# diarrhea - persists
# Pre-renal LEONIE resolved
# Hypokalemia due to diarrhea
- COVID/influenza neg
- UA neg. CXR neg
- Blood cx's neg to date
- C. diff neg. Norovirus neg.
- Stool cx pending.
- Continue empiric cefepime.
- If fever persists, will work-up for tickborne illness.
- Trend fever curve
# Conditions SERVICE DESK TECHNICIAN
HTN
Diverticulitis
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
Hx DVT/PE
BMI=37
Chief Complaint
-: Fever
Subjective / Review of Systems
Continues to have diarrhea.
Not as weak today.
Vital Signs / Physical Exam
Vital Signs
Vital Signs
Temp Pulse Resp BP Pulse Ox
98.0 F 78 18 116/75 100
07/24/24 11:00 07/24/24 11:00 07/24/24 11:00 07/24/24 11:00 07/24/24 11:00
Selected Entries
07/24/24
05:30
Temp 102.5 F H
Physical Exam
Constitutional: No Acute Distress and Comfortable
Eyes: No Conjunctival Hemorrhage and Sclera Anicteric
Cardiovascular: Regular Rate and S1/S2
Pulmonary: Clear
Gastrointestinal: Soft, Non Tender, Non Distended and Normal Bowel Sounds
Genito-Urinary: Negative CVA Tenderness
Neurological: AO x 3
Objective Data
Lab Data
Lab Results
07/24/24 06:58
07/24/24 06:58
PT 19.4 Sec (11.4-14.6) H 07/24/24 06:57
INR 1.61 07/24/24 06:57
APTT 33.3 Sec (23.4-35.0) 07/24/24 06:57
Estimated Creat Clear 81 ml/min 07/24/24 06:58
Lactic Acid 1.3 mmol/L (0.7-2.0) 07/23/24 04:36
Total Bilirubin 0.8 mg/dl (0.2-1.3) 07/22/24 22:44
AST 27 U/L (17-59) 07/22/24 22:44
ALT 28 U/L (0-50) 07/22/24 22:44
Alkaline Phosphatase 45 U/L (38-126) 07/22/24 22:44
Most recent labs reviewed.
Micro Results:
07/23/24 12:30 C. difficile GDH Antigen & Toxins - Final
Feces/Stool Negative for toxigenic C.difficile
- Final
Negative for Norovirus GI and GII.
07/23/24 08:32 Blood Culture - Preliminary
Blood/Venous No Growth in 24 hours- Final report to follow
07/23/24 08:32 Blood Culture - Preliminary
Blood/Venous No Growth in 24 hours- Final report to follow
07/23/24 19:02 Salmonella/Shigella Culture - Pending
Feces/Stool Campylobacter Culture - Pending
Shiga Toxin Test - Pending
Stool Leukocytes - Pending
07/23/24 15:35 MRSA Screen - Pending
Nose
07/22/24 22:44 Influenza Types A & B (SHARITA) - Final
Nasal Swab Negative for Influenza A & B, NAAT
Negative results must be combined with clinical observations
and patient history.
Nucleic Acid Amplification test (NAAT)performed on the
[employer] platform.
07/23/[address]: No CT evidence for acute intracranial hemorrhage or transcortical infarct.7 mm chronic periventricular white matter infarct in the posterior left frontal lobe centrum semiovale.Moderate bilateral frontal lobe volume loss.
07/23/34 CXR: No radiographic evidence of acute cardiopulmonary abnormality.
[2024-07-25 03:16] VITALS: BP 121/72
[2024-07-25] MEDS: NSS 1000 IV ×3 (04:06→23:15)
[2024-07-25] MEDS: MAXIPIME 1000 MG IV ×4 (05:10→23:14)
[2024-07-25] MEDS: STERILE WATER FOR INJECTION 10 ML IV ×4 (05:11→23:14)
[2024-07-25 06:00] VITALS: BMI 37.8
[2024-07-25 07:00] VITALS: BP 124/78
[2024-07-25] MEDS: THIAMINE INJECTION 200 MG IV ×2 (09:06→20:35)
[2024-07-25] MEDS: FOLVITE 1 MG PO (09:06)
[2024-07-25] MEDS: XARELTO 20 MG PO (09:06)
[2024-07-25] MEDS: ZYLOPRIM 300 MG PO (09:06)
--- NOTE | 2024-07-25 09:57 | W.PN.HOSP.TC ---
Today's Communication/Plan
-
see plan
Assessment / Plan
Assessment / Plan
Gen: NAD, AAOx3.
Eyes: EOMI, PERRLA, no scleral icterus.
Neck: supple.
CV: remains RRR, +S1/S2, no m/r/g.
Resp: remains CTAB, no rales, wheezes, or rhonchi.
Abd: remains +BS, soft, NT, ND
Skin: No rashes. 2-3+ B/L LE edema
Neuro: CN 2-12 intact, non-focal.
Psych: Normal mood and affect.
07/23/24 19:02 Feces/Stool Salmonella/Shigella Culture - Preliminary
Culture in Progress
07/23/24 19:02 Feces/Stool Campylobacter Culture - Preliminary
Culture in Progress
07/23/24 19:02 Feces/Stool Stool Leukocytes - Final
07/23/24 08:32 Blood/Venous Blood Culture - Preliminary
No Growth in 48 hours- Final report to follow
07/23/24 08:32 Blood/Venous Blood Culture - Preliminary
No Growth in 48 hours- Final report to follow
07/23/24 15:35 Nose MRSA Screen - Final
No Methicillin Resistant Staphylococcus aureus isolated.
07/23/24 12:30 Feces/Stool C. difficile GDH Antigen & Toxins - Final
Negative for toxigenic C.difficile
07/23/24 12:30 Feces/Stool - Final
Negative for Norovirus GI and GII.
07/22/24 22:44 Nasal Swab Influenza Types A & B (SHARITA) - Final
Negative for Influenza A & B, NAAT
Negative results must be combined with clinical observations
and patient history.
Nucleic Acid Amplification test (NAAT)performed on the
[employer] platform.
CT brain:
1. No CT evidence for acute intracranial hemorrhage or transcortical infarct.
2. 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
3. Moderate bilateral frontal lobe volume loss.
CXR: No radiographic evidence of acute cardiopulmonary abnormality.
SIRS:
-currently no definitive source of infection
-COVID/Flu NEG
-no meningeal signs (on my exam on admission as well as the exam of Dr. Hernandez as per our conversation in [facility] 07/23/24)
-cont empiric Cefepime as per ID
-s/p IVF bolus on admission, cont maintenance IVFs (decrease to 75cc/hr)
-with diarrhea follow stool studies (so far NEG as above)
-BCxs NGTD
LEONIE:
-holding ACEi
-cont IVFs
Hypokalemia;
-AM K Pending
Other problems:
Essential HTN: cont to hold home antihypertensives
Alcohol Use Disorder: cont MSAS protocol (thiamine/folate/PRN ativan)
h/o DVT/PE: cont Xarelto
FULL/Xarelto
Anticipated Discharge: 24 - 48 hours
Subjective/Interval History
-
Date of Service: July 25, 2024
Diarrhea improving
Objective Data
-
Labs:
Laboratory Results
07/25/24
09:56
Sodium Pending
Potassium Pending
Chloride Pending
Carbon Dioxide Pending
BUN Pending
Creatinine Pending
Glucose Pending
Calcium Pending
Vital Signs:
Vital Signs
Temp Pulse Resp BP Pulse Ox
99.2 F 72 18 124/78 97
07/25/24 07:00 07/25/24 07:00 07/25/24 07:00 07/25/24 07:00 07/25/24 07:00
I&O
07/24/24 07/25/24 07/26/24
06:59 06:59 06:59
Intake Total 1460 / 1460 2220 / 2219
Output Total 600 / 600
Balance 860 / 860 2219 / 2219
[2024-07-25 10:32] LABS: % Basophils 0.7 % (0-2); % Eosinophils 1.1 % (0-6); % Immature Granulocytes 0.2 % (0-0.5); % Lymphocytes 16.9 % (20.5-51.1); % Monocytes 10.6 % (1.7-9.3); % Neutrophils 70.5 % (42.2-75.2); Absolute Eosinophils 0.1 10^3/uL (0-0.7); Absolute Lymphocytes 0.8 10^3/uL (1.2-3.4); Absolute Monocytes 0.5 10^3/uL (0.1-0.6); Absolute Neutrophils 3.3 10^3/uL (1.4-6.5); Hematocrit 40.3 % (39.0-52.0); Hemoglobin 13.9 g/dL (13.0-18.0); Mean Corp Hgb Conc. 34.5 g/dL (33.0-37.0); Mean Corpuscular Hgb 33.1 pg (27.0-31.0); Mean Platelet Volume 8.6 fL (7.4-10.4); Nucleated Red Blood Cells % 0 % (-); Platelet Count 152 10^3/uL (130-400); Red Cell Dist. Width 12.9 % (11.5-14.5); White Blood Cell Count 4.6 10^3/uL (4.8-10.8)
[2024-07-25 10:57] LABS: Blood Urea Nitrogen 8 mg/dl (9-20); Calcium 8.2 mg/dl (8.4-10.2); Carbon Dioxide 22 mmol/L (22-30); Chloride 113 mmol/L (98-107); Estimated Creatinine Clearance 100 ml/min; Glucose 87 mg/dl (70-99); Potassium 3.6 mmol/L (3.5-5.1); Sodium 140 mmol/L (135-145); eGFR > 60.00
[2024-07-25 11:00] VITALS: BP 119/73
--- NOTE | 2024-07-25 11:25 | W.PN.ID1 ---
Date of Service
Date of Service: July 25, 2024
Today's Communication
Continue cefepime for now.
Assessment / Plan
# Gastroenteritis improving
# Fever resolving
# Pre-renal LEONIE resolved
# Hypokalemia due to diarrhea
- COVID/influenza neg
- UA neg. CXR neg
- Blood cx's neg to date
- C. diff neg. Norovirus neg.
- Stool cx pending.
- Continue empiric cefepime pending stool cx.
# Conditions PRICING CLERK
HTN
Diverticulitis
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
Hx DVT/PE
BMI=37
Chief Complaint
-: Fever
Subjective / Review of Systems
Feeling better. Diarrhea not as frequent, some formed stools.
Vital Signs / Physical Exam
Vital Signs
Vital Signs
Temp Pulse Resp BP Pulse Ox
99.2 F 72 18 124/78 97
07/25/24 07:00 07/25/24 07:00 07/25/24 07:00 07/25/24 07:00 07/25/24 10:15
Physical Exam
Constitutional: No Acute Distress
Cardiovascular: Regular Rate and S1/S2
Pulmonary: Clear
Gastrointestinal: Soft, Non Tender, Non Distended and Normal Bowel Sounds
Genito-Urinary: Negative CVA Tenderness
Extremities: Negative Edema
Neurological: AO x 3
Objective Data
Lab Data
Lab Results
07/25/24 10:18
07/25/24 10:18
PT 19.4 Sec (11.4-14.6) H 07/24/24 06:57
INR 1.61 07/24/24 06:57
APTT 33.3 Sec (23.4-35.0) 07/24/24 06:57
Estimated Creat Clear 100 ml/min 07/25/24 10:18
Lactic Acid 1.3 mmol/L (0.7-2.0) 07/23/24 04:36
Total Bilirubin 0.8 mg/dl (0.2-1.3) 07/22/24 22:44
AST 27 U/L (17-59) 07/22/24 22:44
ALT 28 U/L (0-50) 07/22/24 22:44
Alkaline Phosphatase 45 U/L (38-126) 07/22/24 22:44
Most recent labs reviewed.
Micro Results:
07/23/24 19:02 Salmonella/Shigella Culture - Preliminary
Feces/Stool Culture in Progress
Campylobacter Culture - Preliminary
Culture in Progress
Shiga Toxin Test - Pending
Stool Leukocytes - Final
07/23/24 08:32 Blood Culture - Preliminary
Blood/Venous No Growth in 48 hours- Final report to follow
07/23/24 08:32 Blood Culture - Preliminary
Blood/Venous No Growth in 48 hours- Final report to follow
07/23/24 15:35 MRSA Screen - Final
Nose No Methicillin Resistant Staphylococcus aureus isolated.
07/23/24 12:30 C. difficile GDH Antigen & Toxins - Final
Feces/Stool Negative for toxigenic C.difficile
- Final
Negative for Norovirus GI and GII.
07/22/24 22:44 Influenza Types A & B (SHARITA) - Final
Nasal Swab Negative for Influenza A & B, NAAT
Negative results must be combined with clinical observations
and patient history.
Nucleic Acid Amplification test (NAAT)performed on the
[employer] platform.
07/23/[address]: No CT evidence for acute intracranial hemorrhage or transcortical infarct.7 mm chronic periventricular white matter infarct in the posterior left frontal lobe centrum semiovale.Moderate bilateral frontal lobe volume loss.
07/23/34 CXR: No radiographic evidence of acute cardiopulmonary abnormality.
[2024-07-25] MEDS: KCL 40 MEQ PO (13:01)
--- NOTE | 2024-07-25 13:01 | CM ---
chart reviewed
norovirus neg, cdiff negative, cont IV antibiotics
PLAN: anticipate patient will discharge to home, CM will monitor for discharge needs and support coordination of services as needed
[2024-07-25 15:00] VITALS: BP 128/76
[2024-07-25 19:00] VITALS: BP 133/81
[2024-07-25] MEDS: TYLENOL 650 MG PO (20:47)
[2024-07-25 23:00] VITALS: BP 127/74
[2024-07-26 03:00] VITALS: BP 127/79
[2024-07-26] MEDS: STERILE WATER FOR INJECTION 10 ML IV ×2 (05:14→11:15)
[2024-07-26] MEDS: MAXIPIME 1000 MG IV ×2 (05:14→11:14)
[2024-07-26 05:18] VITALS: BMI 38.0
[2024-07-26 07:01] LABS: Blood Urea Nitrogen 8 mg/dl (9-20); Calcium 8.1 mg/dl (8.4-10.2); Carbon Dioxide 21 mmol/L (22-30); Chloride 112 mmol/L (98-107); Estimated Creatinine Clearance 101 ml/min; Glucose 67 mg/dl (70-99); Potassium 3.9 mmol/L (3.5-5.1); Sodium 139 mmol/L (135-145); eGFR > 60.00
[2024-07-26 07:15] VITALS: BP 134/76
[2024-07-26] MEDS: XARELTO 20 MG PO (08:34)
[2024-07-26] MEDS: ZYLOPRIM 300 MG PO (08:34)
[2024-07-26] MEDS: FOLVITE 1 MG PO (08:34)
[2024-07-26] MEDS: THIAMINE INJECTION 200 MG IV (08:34)
[2024-07-26 11:03] VITALS: BP 120/73
--- NOTE | 2024-07-26 11:42 | W.PN.HOSP.TC ---
Addendum entered and electronically signed by Carlito Wilson MD 07/26/24 15:06:
SIRS with organ dysfunction likely secondary to viral gastroenteritis
Addendum entered and electronically signed by Carlito Wilson MD 07/26/24 12:45:
Discussed with infectious disease, no need for further antibiotics. Patient is tolerating diet. Discharge today
Time of discharge 37 minutes
Original Note:
Today's Communication/Plan
-
monitor vitals
see plan
cw abx per ID
trial of imodium
Assessment / Plan
Assessment / Plan
Gen: NAD, AAOx3.
Eyes: EOMI, PERRLA, no scleral icterus.
Neck: supple.
CV: remains RRR, +S1/S2, no m/r/g.
Resp: remains CTAB, no rales, wheezes, or rhonchi.
Abd: remains +BS, soft, NT, ND
Skin: No rashes. 2-3+ B/L LE edema
Neuro: CN 2-12 intact, non-focal.
Psych: Normal mood and affect.
07/23/24 19:02 Feces/Stool Salmonella/Shigella Culture - Preliminary
Culture in Progress
07/23/24 19:02 Feces/Stool Campylobacter Culture - Preliminary
Culture in Progress
07/23/24 19:02 Feces/Stool Stool Leukocytes - Final
07/23/24 08:32 Blood/Venous Blood Culture - Preliminary
No Growth in 48 hours- Final report to follow
07/23/24 08:32 Blood/Venous Blood Culture - Preliminary
No Growth in 48 hours- Final report to follow
07/23/24 15:35 Nose MRSA Screen - Final
No Methicillin Resistant Staphylococcus aureus isolated.
07/23/24 12:30 Feces/Stool C. difficile GDH Antigen & Toxins - Final
Negative for toxigenic C.difficile
07/23/24 12:30 Feces/Stool - Final
Negative for Norovirus GI and GII.
07/22/24 22:44 Nasal Swab Influenza Types A & B (SHARITA) - Final
Negative for Influenza A & B, NAAT
Negative results must be combined with clinical observations
and patient history.
Nucleic Acid Amplification test (NAAT)performed on the
[employer] platform.
CT brain:
1. No CT evidence for acute intracranial hemorrhage or transcortical infarct.
2. 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
3. Moderate bilateral frontal lobe volume loss.
CXR: No radiographic evidence of acute cardiopulmonary abnormality.
SIRS:
-currently no definitive source of infection
-COVID/Flu NEG
-no meningeal signs (on my exam on admission as well as the exam of Dr. Hernandez as per our conversation in [facility] 07/23/24)
-cont empiric Cefepime as per ID
-IVF
follow fever curve
-with diarrhea follow stool studies (so far NEG as above). trial of imodium
-BCxs NGTD
LEONIE:
-holding ACEi
-cont IVFs
Hypokalemia;
-AM K Pending
Other problems:
Essential HTN: cont to hold home antihypertensives
Alcohol Use Disorder: cont MSAS protocol (thiamine/folate/PRN ativan)
h/o DVT/PE: cont Xarelto
FULL/Xarelto
Anticipated Discharge: Within 24 hours
Subjective/Interval History
-
Date of Service: July 26, 2024
denies pain
Objective Data
-
Labs:
Laboratory Results
07/26/24
05:46
Sodium 139
Potassium 3.9
Chloride 112 H
Carbon Dioxide 21 L
BUN 8 L
Creatinine 0.9
Glucose 67 L
Calcium 8.1 L
Vital Signs:
Vital Signs
Temp Pulse Resp BP Pulse Ox
98.2 F 70 14 120/73 97
07/26/24 11:03 07/26/24 11:03 07/26/24 11:03 07/26/24 11:03 07/26/24 11:03
I&O
07/25/24 07/26/24 07/27/24
06:59 06:59 06:59
Intake Total 2220 / 2220 1200 / 1200
Output Total 350 / 350
Balance 2220 / 2220 850 / 850
--- NOTE | 2024-07-26 12:37 | W.PN.ID1 ---
Date of Service
Date of Service: July 26, 2024
Today's Communication
- DC cefepime (d4)
- DC home.
Assessment / Plan
# Gastroenteritis resolving
# Fever resolved
# Pre-renal LEONIE resolved
# Hypokalemia due to diarrhea. resolved
- COVID/influenza neg
- UA neg. CXR neg
- Blood cx's neg to date
- C. diff neg. Norovirus neg.
- Stool cx neg
- DC cefepime (d4)
- DC home.
# Conditions [employer]
HTN
Diverticulitis
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
Hx DVT/PE
BMI=37
Chief Complaint
-: Fever
Subjective / Review of Systems
Feels better. Diarrhea resolving.
Vital Signs / Physical Exam
Vital Signs
Vital Signs
Temp Pulse Resp BP Pulse Ox
98.2 F 70 14 120/73 97
07/26/24 11:03 07/26/24 11:03 07/26/24 11:03 07/26/24 11:03 07/26/24 11:03
Physical Exam
Constitutional: No Acute Distress and Comfortable
Cardiovascular: Regular Rate and S1/S2
Pulmonary: Clear
Gastrointestinal: Soft, Non Tender, Non Distended and Normal Bowel Sounds
Genito-Urinary: Negative CVA Tenderness
Extremities: Negative Edema
Neurological: AO x 3
Objective Data
Lab Data
Lab Results
07/25/24 10:18
07/26/24 05:46
PT 19.4 Sec (11.4-14.6) H 07/24/24 06:57
INR 1.61 07/24/24 06:57
APTT 33.3 Sec (23.4-35.0) 07/24/24 06:57
Estimated Creat Clear 101 ml/min 07/26/24 05:46
Lactic Acid 1.3 mmol/L (0.7-2.0) 07/23/24 04:36
Total Bilirubin 0.8 mg/dl (0.2-1.3) 07/22/24 22:44
AST 27 U/L (17-59) 07/22/24 22:44
ALT 28 U/L (0-50) 07/22/24 22:44
Alkaline Phosphatase 45 U/L (38-126) 07/22/24 22:44
Most recent labs reviewed.
Micro Results:
07/23/24 19:02 Salmonella/Shigella Culture - Final
Feces/Stool No Salmonella, Shigella, Aeromonas or Plesiomonas species
isolated.
Campylobacter Culture - Final
No Campylobacter species isolated.
Shiga Toxin Test - Final
No E. coli Shiga Toxin 1 or 2 detected.
Stool Leukocytes - Final
07/23/24 08:32 Blood Culture - Preliminary
Blood/Venous No Growth in 72 hours- Final report to follow
07/23/24 08:32 Blood Culture - Preliminary
Blood/Venous No Growth in 72 hours- Final report to follow
07/23/24 15:35 MRSA Screen - Final
Nose No Methicillin Resistant Staphylococcus aureus isolated.
07/23/24 12:30 C. difficile GDH Antigen & Toxins - Final
Feces/Stool Negative for toxigenic C.difficile
- Final
Negative for Norovirus GI and GII.
07/22/24 22:44 Influenza Types A & B (SHARITA) - Final
Nasal Swab Negative for Influenza A & B, NAAT
Negative results must be combined with clinical observations
and patient history.
Nucleic Acid Amplification test (NAAT)performed on the
[employer] platform.
07/23/[address]: No CT evidence for acute intracranial hemorrhage or transcortical infarct.7 mm chronic periventricular white matter infarct in the posterior left frontal lobe centrum semiovale.Moderate bilateral frontal lobe volume loss.
07/23/34 CXR: No radiographic evidence of acute cardiopulmonary abnormality.
Care Review
Plan reviewed with: Physician (Dr. Wilson)
--- NOTE | 2024-07-26 12:44 | W.DCSUMMARY ---
Discharge Summary
Discharge Data
Date of Admission: 07/23/24
Date of Discharge: 07/26/24
-
Pending Results: No
Hospital Course
63-year-old male with past medical history of hypertension, alcohol use, DVT/PE came to the hospital with fever. Patient met SIRS criteria on admission and was started on empiric antibiotics. Patient was seen by infectious disease. Patient blood
culture was negative throughout hospitalization. He did had diarrhea which was likely suspected secondary to gastroenteritis. Patient stool studies were negative for C. difficile, norovirus. While he was admitted his blood pressure was also on
the lower end so his blood pressure medications were held. Once his symptoms continue to improve and he was able to tolerate diet, he was then discharged home with instructions to follow-up with all his physicians outpatient.
Discharge Plan
-
Patient Disposition: Home (Routine Discharge)
Discharge Diagnosis/Procedures: Source likely secondary to gastroenteritis
Acute kidney injury
Hypokalemia
Diet: As tolerated
Activity: As tolerated
Driving Restrictions: As prior to admission
Bathing Restrictions: None
Referrals:
David Egan MD [Family Provider, [facility]] - in less than 1 week
Prescriptions:
New
folic acid 1 mg Tablet
1 mg PO DAILY Qty: 30 0RF
thiamine mononitrate (vit B1) 100 mg Tablet
100 mg PO BID Qty: 60 0RF
loperamide [Anti-Diarrheal (loperamide)] 2 mg tablet
2 mg PO Q6H PRN (Reason: loose stool) Qty: 20 0RF
Continued
allopurinol 300 MG tablet
300 mg PO DAILY
Xarelto 20 mg Tablet
20 mg PO DAILY
Held
propranolol 80 MG capsule,extended release 24 hr
80 mg PO DAILY
Hold Instructions: Restart when blood pressure is greater than 140/90
lisinopril-hydrochlorothiazide 20-12.5 mg tablet
1 tab PO DAILY
Hold Instructions: Restart when blood pressure is greater than 140/90
psyllium Packet
1 packet PO DAILY
Hold Instructions: Restart when gets constipated
Discharge Orders:
Discharge Patient (As Directed); Ordered 07/26/24
Ordered By: Carlito Wilson
Discharge Date and Time
Discharge Date/Time: 07/26/24 14:44
Print Language: UKRAINIAN
[2024-07-26 13:11] LABS: Lyme Antibody Screen, EIA Negative (Negative)
[2024-07-26] MEDS: IMODIUM 2 MG PO (13:17)
--- NOTE | 2024-07-26 14:52 | PN.CDI ---
CDI
- -
CDI:
Physician Documentation Request
Admit Date: 07/23/24 13:22
Dear Doctor Steve,
Patient admitted with SIRS and LEONIE,
Lactic acid on presentation 3.3.
Please clarify which most accurately describes the patient:
SIRS due to noninfectious source with organ dysfunction
SIRS due to noninfectious source without organ dysfunction
Other
Use of terms such as suspected, likely, concern for, or probable (associated with a specific diagnosis that is being evaluated, monitored, or treated as if it exists) are acceptable and can be coded in the inpatient setting, when documented at the
time of discharge.
Thank you,
Rajni Johnson RN, BSN
CDI Specialist
tiger text
Please use your independent medical judgment in providing your response.
== END 2024-07-26 14:44 | disposition home or self-care (01) | DRG 682 ==
LOC: 3 WEST ACU 13:22
PROVIDERS: Emergency Medicine; Physician Assistant; Physician Assistant Medical; ADMITTING PHYSICIAN Internal Medicine; ATTENDING PHYSICIAN Internal Medicine; EMERGENCY PHYSICIAN Emergency Medicine; FAMILY PHYSICIAN Family Medicine; OTHER PHYSICIAN Internal Medicine Infectious Disease
DX: N17.9 Acute kidney failure, unspecified (principal); R65.11 Systemic inflammatory response syndrome (SIRS) of non-infectious origin with acute organ dysfunction; A08.4 Viral intestinal infection, unspecified; I10 Essential (primary) hypertension; F10.10 Alcohol abuse, uncomplicated; N20.0 Calculus of kidney; E87.6 Hypokalemia; Z96.641 Presence of right artificial hip joint; Z11.52 Encounter for screening for COVID-19; Z79.01 Long term (current) use of anticoagulants; Z86.718 Personal history of other venous thrombosis and embolism
CPT/HCPCS: 70450; 71046; 80048; 80053; 81003; 81015; 83605; 83735; 84100; 85025; 85027; 85610; 85730; 86618; 87040; 87045; 87046; 87070; 87324; 87427; 87449; 87502; 87798; 87811; 89055; 97162; 97166; 97535; 99406